=== PATIENT | female | born 1960 | race Caucasian/White ===

== ENCOUNTER 2023-07-28 09:40 | Outpatient (CLI) | payer MEDICARE | END 2023-07-28 23:59 | disposition home or self-care (01) | LOC: RT 09:40 | PROVIDERS: ATTEND Nurse Practitioner Family | DX: R94.31 Abnormal electrocardiogram [ECG] [EKG] (principal); R06.09 Other forms of dyspnea | CPT/HCPCS: 94010; 94727; 94729; A4615 ==

== ENCOUNTER → 2025-01-03 | Outpatient (CLI) | payer MEDICARE ==
--- NOTE | 2025-01-03 12:56 | RADIOLOGY REPORT ---
CLINICAL INDICATION: LEFT HAND PAIN TECHNIQUE: 3 radiographic views of the left hand were obtained. Comparison: None FINDINGS/IMPRESSION: There is no evidence of acute fracture or dislocation. The visualized joint space is well maintained. The alignment is anatomical. There is no radiopaque foreign body.
--- NOTE | 2025-01-03 12:56 | RADIOLOGY REPORT ---
CLINICAL INDICATION: LEFT THUMB PAIN TECHNIQUE: 1 radiographic views of the left hand and 2 views of the left 1st digit were obtained. Comparison: None FINDINGS/IMPRESSION: There is no evidence of acute fracture or dislocation. Mild subluxation of the 1st proximal interphalangeal joint.
== END | disposition home or self-care (01) ==
LOC: RAD 11:21
PROVIDERS: ATTEND Nurse Practitioner Family
DX: S63.122A Subluxation of interphalangeal joint of left thumb, initial encounter (principal); M79.642 Pain in left hand; X58.XXXA Exposure to other specified factors, initial encounter; Y93.89 Activity, other specified; Y92.89 Other specified places as the place of occurrence of the external cause; Y99.8 Other external cause status
CPT/HCPCS: 73130; 73140

== ENCOUNTER 2025-02-03 12:38 | Outpatient (CLI) | payer OTHER ==
--- NOTE | 2025-02-04 04:49 | RADIOLOGY REPORT ---
Procedure: CT CT CHEST LOW DOSE Reason for study/Clinical History: PERSONAL HISTORY OF NICOTINE DEPENDENCE Comparison Study: None available at time of dictation. TECHNIQUE: Multidetector CT of the chest was performed from the lung apices to the upper abdomen with out the use of intravenous contract. Axial, coronal and sagittal multiplanar reformats were performed . Radiation Dose Information: CT Dose: CTDI volume is 1.9 mGy. Dose-length product is 62 mGy*cm The dose indicators for CT are the volume Computed Tomography (CT) Dose Index (CTDIvol) and the Dose Length Product (DLP), and are measured in units of mGy and mGy-cm, respectively. These indicators are not patient dose, but values generated from the CT scanner acquisition factors. The report includes radiation exposure data for exposures received during this examination. FINDINGS: Lower neck: Normal thyroid. Lungs: No focal consolidation. No suspicious pulmonary nodule. Heart/Vascular Structures: Cardiomegaly. Coronary artery calcifications. Vascular calcifications of t he aorta. Ectasia of the ascending thoracic aorta measures 3.8 cm. Lymph Nodes: No adenopathy Pleura: No pleural effusion or significant pneumothorax. Musculoskeletal: No acute osseous abnormality. Soft tissues: Normal. Upper abdomen: Limited portions of the upper abdomen are unremarkable. IMPRESSION: No acute intrathoracic abnormality. LUNG RADS Category 1: Continue annual screening with LDCT
== END 2025-02-03 23:59 | disposition home or self-care (01) ==
LOC: RAD 12:38
PROVIDERS: ATTEND Physician Assistant
DX: Z12.2 Encounter for screening for malignant neoplasm of respiratory organs (principal); I51.7 Cardiomegaly; I25.10 Atherosclerotic heart disease of native coronary artery without angina pectoris; I70.0 Atherosclerosis of aorta; I77.810 Thoracic aortic ectasia; Z87.891 Personal history of nicotine dependence
CPT/HCPCS: 71271

== ENCOUNTER 2025-03-31 14:26 | Outpatient (CLI) | payer OTHER ==
--- NOTE | 2025-03-31 15:10 | RADIOLOGY REPORT ---
RIGHTLEFT HIP RADIOGRAPH. CLINICAL INDICATION: LOCALIZED SWELLING, MASS AND LUMP, RIGHT LOWER LIMB TECHNIQUE: 4 views of the right hip were obtained. FINDINGS: There is no evidence of fracture, subluxation or dislocation. Moderate right hip osteoarthr itis The bony mineralization is normal.No radiopaque foreign body is identified. IMPRESSION: 1. No evidence of acute bony injury.
== END 2025-03-31 23:59 | disposition home or self-care (01) ==
LOC: RAD 14:26
PROVIDERS: ATTEND Nurse Practitioner Family
DX: M16.11 Unilateral primary osteoarthritis, right hip (principal); R22.41 Localized swelling, mass and lump, right lower limb
CPT/HCPCS: 73502

== ENCOUNTER 2025-04-30 12:40 | Outpatient (CLI) | payer OTHER ==
--- NOTE | 2025-04-30 14:30 | RADIOLOGY REPORT ---
Exam: US US NON VASCULAR Date: 04/30/2025 12:54 PM Clinical History: LOCALIZED SWELLING, MASS AND LUMP, RIGHT LOWER LIMB Comparison: None Technique: Targeted sonographic evaluation of the soft tissues of the right hip was obtained utilizing grayscale and color Doppler imaging. Findings/Impression: Complex mass in the soft tissues of the right hip measuring 6 x 3.1 x 4.3 cm. Further evaluation with a contrast-enhanced MRI is recommended.
== END 2025-04-30 23:59 | disposition home or self-care (01) ==
LOC: RAD 12:40
PROVIDERS: ATTEND Nurse Practitioner Family
DX: S70.01XD Contusion of right hip, subsequent encounter (principal); R22.41 Localized swelling, mass and lump, right lower limb; X58.XXXD Exposure to other specified factors, subsequent encounter; M25.851 Other specified joint disorders, right hip
CPT/HCPCS: 76881

== ENCOUNTER 2025-05-26 11:45 | Outpatient (CLI) | payer OTHER ==
--- NOTE | 2025-05-26 12:34 | RADIOLOGY REPORT ---
[facility] INDICATION: PAIN UPPER BACK, LEFT HIP PAIN COMPARISON: None TECHNIQUE:4 views of the thoracic spine were obtained. FINDINGS: The thoracic vertebral alignment is normal. The intervertebral disc spaces are well-maintained. No significant facet arthropathy is noted. No acute fracture, vertebral compression deformity or aggressive osseous lesions. The imaged thorax and abdomen are grossly unremarkable. IMPRESSION: No acute fracture.
== END 2025-05-26 23:59 | disposition home or self-care (01) ==
LOC: RAD 11:45
PROVIDERS: ATTEND Nurse Practitioner Family
DX: M54.9 Dorsalgia, unspecified (principal); M25.552 Pain in left hip
CPT/HCPCS: 72070

== ENCOUNTER 2025-06-12 08:53 | Outpatient (CLI) | payer OTHER ==
[2025-06-12 09:34] LABS: CREATININE 1.24 MG/DL (0.40-0.90); TOTAL CARBON DIOXIDE 31.7 MMOL/L (24-32); eGFR 43 ML/MIN
--- NOTE | 2025-06-12 15:37 | RADIOLOGY REPORT ---
CLINICAL INDICATION: OTHER SPECIFIED SOFT TISSUE DISORDERS COMPARISON: DI HIP UNILATERAL 2 VIEWS on DOS: 03/31/25 TECHNIQUE: Multiplanar, multi-sequence MRI of the right hip was performed without and with intravenous contrast. The contralateral hip is included on the large [id number] sequences. 10 cc Clariscan intravenous contrast was used. Contrast: None INTERPRETATION: Joint space: There is no effusion. Bones and articular cartilage: There is no fracture, bone marrow edema or avascular necrosis. The alignment is normal. There is chondral thinning in the acetabulum in the right femoral head. Contralateral hip is grossly unremarkable as assessed on the large [id number] images. Tendons, muscles and bursae: There is no tendon abnormality. The muscles are normal in bulk and signal characteristics. There is no evidence of bursitis. Acetabular labrum: No labral tear is identified. Other soft tissues: There is a heterogeneous T1 hyperintense, T2 hyperintense fluid collection in the subcutaneous tissues of the right hip with a low signal intensity margin. This measures 4.5 cm AP x 3.4 cm transverse x 5.2 cm craniocaudal and contains fluid fluid levels. No significant enhancement is noted. No pathologic enhancement in the pelvis. No lymphadenopathy. IMPRESSION: 1. 5.2 cm fluid collection in the subcutaneous tissues of the right thigh without enhancement with fluid fluid levels. This may reflect a hematoma. A follow-up with ultrasound may be obtained to ensure complete resolution. 2. Mild degenerative changes in the right hip. HS:Y
[2025-06-12] MEDS ORDERED: GADOTERATE MEGLUMINE 7.5 MMOL/15 ML VIAL IV ONE (19:02)
== END 2025-06-12 23:59 | disposition home or self-care (01) ==
LOC: MRI 08:53
PROVIDERS: ATTEND Nurse Practitioner Family
DX: M16.11 Unilateral primary osteoarthritis, right hip (principal); M79.89 Other specified soft tissue disorders
CPT/HCPCS: 36415; 73723; 80048; A9575